=== PATIENT | female | born 1965 | race African-American/Black ===

== ENCOUNTER 2023-11-25 20:29 | Inpatient (IN) | payer MEDICAID, OTHER ==
[~2023-11-25] VITALS: Ht 170.2 cm; Wt 94.0 kg
[~2023-11-25 20:29] MED LIST: HYDR50TA4 PO
[2023-11-25 20:43] VITALS: BP_SYST 141; PULSE 62; RESP 18; TEMP 97.5; O2SAT 99
[2023-11-25 21:22] LABS: BASOPHILS # (AUTO) 0.1 K/uL (0.0-0.2); BASOPHILS % (AUTO) 1.6 % (0.0-2.0); EOSINOPHILS # (AUTO) 0.3 K/uL (0.0-0.4); HEMATOCRIT 35.8 % (36-48); HEMOGLOBIN 12.3 g/dL (12.0-16.0); LYMPHOCYTES # (AUTO) 2.8 K/uL (1.0-5.5); LYMPHOCYTES % (AUTO) 52.1 % (20.5-51.5); MEAN CORPUSCULAR HEMOGLOBIN 29 pg (27-31); MEAN CORPUSCULAR HGB CONC 34 % (32-36); MEAN CORPUSCULAR VOLUME 85 fL (79.0-98.0); MONOCYTES # (AUTO) 0.4 K/uL (0.0-1.0); MONOCYTES % (AUTO) 6.8 % (1.7-9.3); NEUTROPHILS # (AUTO) 1.9 K/uL (1.8-7.7); NEUTROPHILS % (AUTO) 34.5 % (40.0-70.0); PLATELET COUNT (AUTO) 185 K/uL (130-430); RED BLOOD CELL COUNT(AUTO) 4.21 MIL/uL (4.2-6.2); RED CELL DISTRIBUTION WIDTH 13.7 % (9.0-15.0); WHITE BLOOD COUNT (AUTO) 5.4 K/uL (4.8-10.8)
[2023-11-25 21:34] LABS: ALANINE AMINOTRANSFERASE 29 U/L (12-78); ALBUMIN 3.6 g/dL (3.4-4.8); ANION GAP 11 (5-15); ASPARTATE AMINOTRANSFERASE 41 U/L (10-37); BILIRUBIN,DIRECT 0.2 mg/dL (0.0-0.3); CALCIUM 9.4 mg/dL (8.4-11.0); CARBON DIOXIDE 26 mmol/L (23-29); CHLORIDE 102 mmol/L (98-107); GFR AFRICAN AMERICAN 54 mL/min (>90); GFR NON AFRICAN-AMERICAN 44 mL/min (>90); GLUCOSE 78 mg/dL (74-106); LIPASE 129 U/L (16-77); POTASSIUM 4.1 mmol/L (3.5-5.1); SODIUM SERUM 139 mmol/L (136-145); TOTAL BILIRUBIN 0.9 mg/dL (0.0-1.0); TOTAL PROTEIN, SERUM 7.3 g/dL (6.4-8.3); UREA NITROGEN, BLOOD 20 mg/dL (8-21)
[2023-11-25] MEDS: MORPHINE 4 MG INJ. 4 MG/ML VIAL IVP ONE (21:40)
[2023-11-25] MEDS: ASPIRIN 81 MG TAB.CHEW PO ONE (21:44)
[2023-11-25] MEDS: ONDANSETRON HCL 4 MG/2 ML VIAL IVP ONE (21:44)
[2023-11-25] MEDS: traMADol HCL HCL 50 MG TABLET (ULTRAM) PO ONE (21:45)
[2023-11-25] MEDS: NACL 0.9% 1,000 ML IV ONE (21:49)
[2023-11-25 22:14] LABS: BILIRUBIN,URINE NEGATIVE (NEGATIVE); COLOR,URINE YELLOW (YELLOW); GLUCOSE,URINE NEGATIVE (NEGATIVE); KETONES,URINE NEGATIVE (NEGATIVE); LEUKOCYTE ESTERASE ,URINE 2+ (NEGATIVE); NITRITE, URINE POSITIVE (NEGATIVE); PH,URINE 6.5 (5.0-8.0); PROTEIN URINE NEGATIVE (NEGATIVE); UROBILINOGEN,URINE 0.2 (0.2-1.0)
[2023-11-25 22:17] LABS: BLOOD, URINE TRACE (NEGATIVE); CLARITY/URINE HAZY (CLEAR)
[2023-11-25 22:21] LABS: BACTERIA,URINE MODERATE /HPF (None Seen); MUCUS,URINE None Seen /LPF (None Seen); RBC,URINE 0-3 /HPF (0-3); WBC,URINE 20-50 /HPF (0-3)
[2023-11-25] MEDS ORDERED: TIRZ2.5P3 (22:32)
[2023-11-25] MEDS ORDERED: metoprolol PO (22:32)
[2023-11-25] MEDS ORDERED: LOSA-415 PO (22:32)
[2023-11-25] MEDS ORDERED: ASPI-1393 PO (22:32)
[2023-11-25] MEDS ORDERED: EVOL140P3 SQ (22:32)
[2023-11-25] MEDS ORDERED: AMLO5TAB4 PO (22:32)
[2023-11-25] MEDS ORDERED: EZET-55 PO (22:32)
[2023-11-25] MEDS ORDERED: SPIR25TA PO (22:32)
[2023-11-26] VITALS (9 sets, daily range): BP systolic 132–150; PULSE 53–78; RESP 16–20; TEMP 96.4–98.2; O2SAT 95–99
[2023-11-26] MEDS: cefTRIAXone 1 GM IVPB PREMIX 50 ML IV ONE (03:34)
[2023-11-26] MEDS: NACL 0.9% 1,000 ML IV SCH (04:27)
[2023-11-26 06:34] LABS: BASOPHILS % (AUTO) 0.6 % (0.0-2.0); EOSINOPHILS # (AUTO) 0.3 K/uL (0.0-0.4); EOSINOPHILS % (AUTO) 6.7 % (0.0-4.0); HEMOGLOBIN 11.7 g/dL (12.0-16.0); LYMPHOCYTES # (AUTO) 2.4 K/uL (1.0-5.5); LYMPHOCYTES % (AUTO) 60.4 % (20.5-51.5); MEAN CORPUSCULAR HEMOGLOBIN 29 pg (27-31); MEAN CORPUSCULAR HGB CONC 33 % (32-36); MEAN CORPUSCULAR VOLUME 87 fL (79.0-98.0); MONOCYTES # (AUTO) 0.4 K/uL (0.0-1.0); MONOCYTES % (AUTO) 8.8 % (1.7-9.3); NEUTROPHILS % (AUTO) 23.5 % (40.0-70.0); PLATELET COUNT (AUTO) 168 K/uL (130-430); RED BLOOD CELL COUNT(AUTO) 4.04 MIL/uL (4.2-6.2); RED CELL DISTRIBUTION WIDTH 13.4 % (9.0-15.0); WHITE BLOOD COUNT (AUTO) 4.1 K/uL (4.8-10.8)
[2023-11-26 06:52] LABS: ALBUMIN 3.2 g/dL (3.4-4.8); CALCIUM 8.8 mg/dL (8.4-11.0); CREATININE 1.2 mg/dL (0.55-1.30); POTASSIUM 3.7 mmol/L (3.5-5.1); TOTAL BILIRUBIN 0.7 mg/dL (0.0-1.0); TOTAL PROTEIN, SERUM 6.6 g/dL (6.4-8.3)
[2023-11-26] MEDS ORDERED: METO50TA16 PO (07:37)
[2023-11-26] MEDS ORDERED: EZET10TA30 PO (07:37)
[2023-11-26] MEDS: METOPROLOL TARTRATE 50 MG TABLET PO SCH (08:45)
[2023-11-26] MEDS: ASPIRIN 81 MG TABLET(ECOTRIN) PO SCH (08:46)
[2023-11-26] MEDS: SPIRONOLACTONE 25 MG TABLET (ALDACTONE) PO SCH (08:46)
[2023-11-26] MEDS: amLODIPine BESYLATE 5 MG TABLET PO SCH (08:47)
[2023-11-26] MEDS: LOSARTAN POTASSIUM 50 MG TABLET (COZAAR) PO SCH (08:48)
[2023-11-26] MEDS: cefTRIAXone 1 GM in D5W 50 ML IV SCH (08:49)
[2023-11-26] MEDS: EZETIMIBE 10 MG TABLET PO SCH (18:40)
[2023-11-26] MEDS ORDERED: D5W 1,000 ML IV SCH (18:45)
[2023-11-26] MEDS: METOPROLOL TARTRATE 25 MG TABLET PO SCH (20:44)
[2023-11-27] VITALS (7 sets, daily range): BP systolic 131–154; PULSE 58–68; RESP 12–16; TEMP 96.8–98.9; O2SAT 97–100
[2023-11-27 09:55] LABS: BASOPHILS % (AUTO) 0.7 % (0.0-2.0); EOSINOPHILS # (AUTO) 0.3 K/uL (0.0-0.4); EOSINOPHILS % (AUTO) 8.2 % (0.0-4.0); HEMATOCRIT 36.8 % (36-48); HEMOGLOBIN 12.2 g/dL (12.0-16.0); LYMPHOCYTES # (AUTO) 1.4 K/uL (1.0-5.5); LYMPHOCYTES % (AUTO) 44.8 % (20.5-51.5); MEAN CORPUSCULAR HEMOGLOBIN 29 pg (27-31); MEAN CORPUSCULAR HGB CONC 33 % (32-36); MEAN CORPUSCULAR VOLUME 86 fL (79.0-98.0); MONOCYTES # (AUTO) 0.3 K/uL (0.0-1.0); NEUTROPHILS # (AUTO) 1.2 K/uL (1.8-7.7); NEUTROPHILS % (AUTO) 38.3 % (40.0-70.0); PLATELET COUNT (AUTO) 174 K/uL (130-430); RED BLOOD CELL COUNT(AUTO) 4.27 MIL/uL (4.2-6.2); RED CELL DISTRIBUTION WIDTH 13.4 % (9.0-15.0); WHITE BLOOD COUNT (AUTO) 3.2 K/uL (4.8-10.8)
[2023-11-27 10:29] LABS: ALBUMIN 3.2 g/dL (3.4-4.8); CALCIUM 8.9 mg/dL (8.4-11.0); CREATININE 1.13 mg/dL (0.55-1.30); POTASSIUM 3.8 mmol/L (3.5-5.1); TOTAL BILIRUBIN 0.6 mg/dL (0.0-1.0); TOTAL PROTEIN, SERUM 6.7 g/dL (6.4-8.3)
[2023-11-27] MEDS ORDERED: SULF1TAB47 PO (17:44)
== END 2023-11-27 20:00 | disposition home or self-care (01) | DRG 690 ==
LOC: SED 20:29 → STU 11-26 03:46 → SMU 11-27 17:08
PROVIDERS: ADMIT Student in an Organized Health Care Education/Training Program; ATTEND Student in an Organized Health Care Education/Training Program
DX: N30.00 Acute cystitis without hematuria (principal); I24.89 Other forms of acute ischemic heart disease; R65.10 Systemic inflammatory response syndrome (SIRS) of non-infectious origin without acute organ dysfunction; E78.00 Pure hypercholesterolemia, unspecified; I10 Essential (primary) hypertension; E78.5 Hyperlipidemia, unspecified; Z79.82 Long term (current) use of aspirin; Z79.899 Other long term (current) drug therapy
CPT/HCPCS: 36415; 71045; 80048; 80053; 80076; 81000; 81001; 81015; 83605; 83690; 84484; 85025; 87040; 87086; 87186; 93005; 93306; 99285; G0378; J0696; J2270; J2405; J7030; J7060